=== PATIENT | male | born 1955 | race Caucasian/White ===

== ENCOUNTER 2018-06-10 17:05 | Emergency (ER) | payer OTHER ==
[2018-06-10] MEDS ORDERED: Acetaminophen/HYDROcodone 325-5 MG Tab PO ONE (17:35)
--- NOTE | 2018-06-10 18:34 | EDM.PDOC ---
ED HPI GENERAL MEDICAL PROBLEM - General Chief Complaint: Lower Extremity Injury/Pain Stated Complaint: LEFT HIP PAIN Time Seen by Provider: 06/10/18 17:20 Source of Information: Reports: Patient History Limitations: Reports: No Limitations - History of Present Illness INITIAL COMMENTS - FREE TEXT/NARRATIVE: Pain has been present for the past 2 weeks. No clear injury. Takes indometacin for pain. 3 visits to chiropractor's not appears to be helping today significant pain at rest and worse with activity. Pain goes down from the left hip towards the knee. There is no limb weakness glenroy throbbing anterior left thigh pain Onset: Other (2 weeks ago) Location: Reports: Lower Extremity, Left Quality: Reports: Ache Severity: Severe Improves with: Reports: Other (Minimum improvement indometacin) Context: Reports: Activity, Other Associated Symptoms: Reports: No Other Symptoms Treatments GARAGE HELPER: Reports: NSAIDS L hip to knee Pain Score (Numeric/FACES): 10 - Related Data Allergies Allergy/AdvReac Type Severity Reaction Status Date / Time aspirin Allergy Pain Verified 06/10/18 17:09 Home Meds: Home Meds Lysine 500 mg PO DAILY 02/03/15 [History] Multivit-Min/FA/Lycopene/Lut [Centrum Silver Tablet] 1 tab PO DAILY 02/03/15 [ History] Allopurinol [Zyloprim] 300 mg DAILY 06/10/18 [History] Cholecalciferol (Vitamin D3) [Vitamin D3] 2,000 unit PO DAILY 06/10/18 [History] Gluc 2KCl/Chondr/Roselia Hy/Hy Ac [Glucosamine & Chondroitin Cap] 2 each PO DAILY 06/10/18 [History] Indomethacin [Indocin SR] 75 mg BID PRN 06/10/18 [History] Morphine Sulfate 15 mg PO Q8H PRN #15 tablet 06/10/18 [Rx] Past Medical History HEENT History: Reports: Impaired Vision Respiratory History: Reports: Sleep Apnea Musculoskeletal History: Reports: Gout Other Musculoskeletal History: L ROTATOR CUFF DISLOCATION Psychiatric History: Reports: Anxiety, Depression Endocrine/Metabolic History: Reports: Obesity/BMI 30+ - Infectious Disease History Infectious Disease History: Reports: C-Difficile - Past Surgical History Endocrine Surgical History: Reports: None Musculoskeletal Surgical History: Reports: Arthroscopic Knee, Shoulder Surgery Other Musculoskeletal Surgeries/Procedures:: L rotator cuff, L knee scope Social & Family History - Family History Family Medical History: Noncontributory - Tobacco Use Smoking Status *Q: Never Smoker - Caffeine Use Caffeine Use: Reports: Soda - Recreational Drug Use Recreational Drug Use: No Review of Systems - Review of Systems Review Of Systems: See Below Constitutional: Reports: No Symptoms Respiratory: Reports: No Symptoms Cardiovascular: Reports: No Symptoms GI/Abdominal: Reports: No Symptoms Musculoskeletal: Reports: Other (Tenderness to palpation and manipulation hip laterally on the left also proximal to the left knee) Skin: Reports: No Symptoms Psychiatric: Reports: No Symptoms ED EXAM, GENERAL - Physical Exam Exam: See Below Exam Limited By: No Limitations General Appearance: Alert, No Apparent Distress, Other (Worried looking) Respiratory/Chest: No Respiratory Distress, Lungs Clear, Normal Breath Sounds Cardiovascular: Normal Peripheral Pulses, Regular Rate, Rhythm Peripheral Pulses: 2+: Dorsalis Pedis (L) Back Exam: No: CVA Tenderness (L) Extremities: Normal Inspection, Other (There is tenderness in the left hip laterally and just proximal to the left knee minimal tenderness to manipulation of the bulk of the anterior left thigh). No: Increased Warmth, Pallor, Redness Course - Vital Signs Text/Narrative:: Doppler of the left thigh shows no blood clots. There appears to be no limb asymmetry no skin redness or differential warmth, no skin rash good pulses in that extremity. . pain is reproducible in the emergency room .patient is able to stand up and bear weight , it is unlikely he has a fracture. Pain is located over the left hip radiating down the left thigh towards the left knee. Good pain relief with norco with pain now 3/10 from 06/25 Last Recorded V/S: Last Vital Signs Temp 37.3 C 06/10/18 18:55 Pulse 78 06/10/18 18:55 Resp 18 06/10/18 18:55 BP 151/80 H 06/10/18 18:55 Pulse Ox 97 06/10/18 18:55 - Orders/Labs/Meds Orders: Active Orders 24 hr Category Date Time Status VL Duplex Lwr Ext Veins Ltd Lt [US] Stat Exams 06/10/18 17:30 Taken Meds: Medications Discontinued Medications Generic Name Dose Route Start Last Admin Trade Name Freq PRN Reason Stop Dose Admin Hydrocodone Bitart/Acetaminophen 1 tab 06/10/18 17:35 06/10/18 17:46 [place] 325-5 Mg PO 06/10/18 17:36 1 tab ONETIME ONE Administration Departure - Departure Time of Disposition: 18:44 Disposition: Home, Self-Care 01 Condition: Good Clinical Impression: Left thigh pain - Discharge Information *COPY OF PRESCRIPTION DRUG MONITORING REPORT IN PATIENT CAIN: No Prescriptions: Morphine Sulfate 15 mg PO Q8H PRN #15 tablet PRN Reason: Pain Instructions: Musculoskeletal Pain Referrals: Laz Cross MD [Primary Care Provider] - Forms: ED Department Discharge Additional Instructions: your pain is Likely musculoskeletal, You have been given some [place] for pain. You are been discharged with morphine prescription. Please be aware of sedative and potential addictive effect of opioids. Do not take [place] if you need to do any activity that needs you to be alert. Follow up with your regular MD at clinic in next couple days for recheck. - My Orders Last 24 Hours: My Active Orders 06/10/18 17:30 VL Duplex Lwr Ext Veins Ltd Lt [US] Stat - Assessment/Plan Last 24 Hours: My Active Orders 06/10/18 17:30 VL Duplex Lwr Ext Veins Ltd Lt [US] Stat
[2018-06-10 19:04] VITALS: BP 151/80
--- NOTE | 2018-06-11 09:32 | US ---
INDICATION: Thigh pain, question DVT. DUPLEX ULTRASOUND, LEFT LOWER EXTREMITY VEINS: Utilizing 2-D real time, duplex Doppler spectral analysis and color flow imaging, examination of left the lower extremity veins revealed no evidence of deep venous thrombosis or obstruction. Compression views showed no abnormal lack of compression to suggest thrombosis. The valves were not evaluated for competence, due to patients inability to Valsalva - patient in too much pain. IMPRESSION: Duplex ultrasound, left lower extremity veins, shows no evidence of deep venous thrombosis. MTDD
== END 2018-06-10 19:25 | disposition home or self-care (01) ==
LOC: FB.ED 17:05
DX: M79.652 Pain in left thigh (principal); Z88.8 Allergy status to other drugs, medicaments and biological substances
CPT/HCPCS: 93971-LT; 99284; A9270-GY